=== PATIENT | female | born 1935 | race Caucasian/White ===

== ENCOUNTER 2024-04-05 07:55 | Emergency (ER) | payer MEDICARE, OTHER, SELFPAY ==
[2024-04-05 07:56] VITALS: BP 148/78; PULSE 74; RESP 18; TEMP 36.6; O2SAT 98; BMI 21.8
[2024-04-05 08:20] LABS: MANUAL DIFF FLAG NO
[2024-04-05 08:26] LABS: Appearance Urine Cloudy; Color Urine Yellow; Glucose Urine UA Negative (Negative); Leukocyte Esterase Urine Large (3+) (Negative); Nitrite Urine Negative (Negative); PH 5.5 (5.0-9.0); Specific Gravity - Urine 1.015 (1.005-1.025); UMIC TRIGGER UACC YES; Urine Blood Negative (Negative); Urine Ketones Negative (Negative); Urine Protein 30 (1+) mg/dL (Neg-Trace)
[2024-04-05 08:29] LABS: Bacteria Urine 1+ (None Seen); RBC Urine 0-2 /HPF (0-2); UACC Culture Trigger YES; WBC Urine >50 /HPF (0-5)
[2024-04-05 08:34] LABS: Basophils Percent Auto 0.2 % (0-2); Eosinophils Absolute Auto 0.1 X10*3/uL (0.0-0.4); Eosinophils Percent Auto 1.8 % (0-4); Hematocrit 39.9 % (37.0-47.0); Hemoglobin 13.2 g/dl (12.0-16.0); Imm Gran Abs Auto 0.02 X10*3/uL (0.00-0.03); Imm Gran Pct Auto 0.4 % (0.0-0.4); Lymphocytes Absolute Auto 0.9 X10*3/uL (1.2-4.9); Lymphocytes Percent Auto 17.8 % (20-40); Mean Corpuscular HGB Conc 33.1 g/dl (31.0-35.0); Mean Corpuscular Hemoglobin 29.9 pg (27.0-33.0); Mean Corpuscular Volume 90.3 fL (80.0-98.0); Mean Platelet Volume 10.4 fL (9.4-12.3); Monocytes Absolute Auto 0.5 X10*3/uL (0.1-1.2); Monocytes Percent Auto 9.4 % (2-11); Neutrophils Absolute Auto 3.5 x10*3/uL (2.0-8.3); Neutrophils Percent Auto 70.4 % (45-73); Platelet Count 174 X10*3/uL (160-400); Red Blood Count 4.42 X10*6/uL (4.20-5.50); Red Cell Distribution Width 14.6 % (11.0-16.0); White Blood Count 4.9 X10*3/uL (4.8-10.8)
[2024-04-05 08:36] LABS: Alanine Aminotransferase 14 U/L (0-31); Alkaline Phosphatase 91 U/L (39-117); Anion Gap 13 (12-20); Aspartate Amino Transferase 17 U/L (5-31); Bilirubin Direct 0.3 mg/dL (0.0-0.5); Bilirubin Total 0.9 mg/dL (0.0-1.0); Blood Urea Nitrogen 13 mg/dL (9-16); Calcium 9.5 mg/dL (8.4-10.2); Carbon Dioxide 26 mmol/L (22-29); Chloride 107 mmol/L (96-108); Creatinine Clr Calc Pharmacy 40.1; Estimated Glomerular Filt Rate > 60; Glucose Random 115 mg/dL (60-115); Lipase 25 U/L (8-78); Potassium 3.8 mmol/L (3.3-5.1); Sodium 142 mmol/L (135-145); Total Protein 6.4 g/dL (6.5-8.0)
[2024-04-05 10:00] VITALS: BP 108/71; PULSE 73; RESP 16; O2SAT 97
--- NOTE | 2024-04-05 10:28 | ED_ITS ---
HPI - Female Genitourinary General Chief complaint: Urogenital-Female Stated complaint: UTI Time Seen by Provider: 04/05/24 10:28 Source: patient and RN notes reviewed Mode of arrival: ambulatory Limitations: no limitations History of Present Illness ED Provider: Padma Asencio PA-C [facility] Narrative: This is a 88-year-old female with a history of hyperlipidemia, hiatal hernia, and osteoporosis, who presents emergency department with complaints of dysuria, urinary frequency for the last week. Patient states that she was seen by her primary care physician who put her on Macrobid which she only took 2 doses of as it caused her to have diarrhea. She called her primary care physician who told her that she did not have a urinary tract infection at that time and told her to discontinue this. She denies any fevers, chills, chest pain, shortness of breath, severe abdominal pain, vomiting, nausea. She is otherwise feeling well. No body aches. No other complaints or concerns at this time. MD elicited complaint: UTI Onset (ago): day(s) Vaginal discharge: none Vaginal bleeding: none Urinary symptoms: Dysuria and Frequency Exacerbating factors: urination Relieving factors: none Associated symptoms: denies other symptoms Treatment prior to arrival: none Sexual activity: No Patient : No Related Data Previous Rx's ?Medication ?Instructions ?Recorded cefuroxime axetil 250 mg tablet 250 mg PO BID 7 days #13 tabs 04/05/24 Allergies Allergy/AdvReac Type Severity Reaction Status Date / Time No Known Allergies Allergy Verified 04/05/24 08:01 Review of Systems 2 Review of Systems: Yes all other systems are reviewed and are negative Constitutional: Constitutional: Reports as per [facility] Social History Social History Alcohol intake: former Smoked in Last 30 Days: No Use of substances other than those prescribed or required for medical reasons: No Advance Directives: No Advance Directives Information Provided: No Do you have a plan to hurt others: No Plan Physical Exam 2 Vital Signs: Vital Signs: Last Vital Signs Temp 98.1 F 04/05/24 11:33 Pulse 85 04/05/24 11:33 Resp 18 04/05/24 11:33 BP 108/71 04/05/24 11:33 Pulse Ox 98 04/05/24 11:33 O2 Del Method Room Air 04/05/24 11:33 BMI result Body Mass Index 21.8 Const: General: cooperative, comfortable and no acute distress O rientation/consciousness: patient oriented x3 Limitations: no limitations HEENT: Head: Yes normal to inspection, Yes normocephalic and Yes atraumatic Ears: hearing grossly normal bilaterally General nose exam: Normal external nose present Face and sinus: Yes normal facial exam Mouth: Normal oral and palatal mucosa present, oropharynx normal and moist mucous membranes Throat: Yes posterior oropharynx normal Eyes: General: appearance normal, both eyes and all related structures E yelids: Yes eyelids normal Conjunctivae: conjunctivae normal Sclerae: s clerae normal Pupils: Equal, round and reactive pupils present EOM: EOMs intact bilaterally Neck: Neck: Yes normal visual inspection, Yes full ROM and Yes no lymphadenopathy Lymphatic: no lymphadenopathy noted Chest: Chest palpation & inspection: normal inspection of the chest Resp: Effort & Inspection: normal respiratory effort and able to speak in complete sentences Auscultation: clear to auscultation bilaterally, no crackles, no rales, no rhonchi and no wheezes Cardio: Rate: regular rate Rhythm: regular rhythm Heart sounds: S1 normal heart sound present and S2 normal heart sound present GI: Other: Abdomen is soft, nontender, nondistended Inspection: Yes normal to inspection : Other: No CVA tenderness Skin: General skin exam: no rashes or lesions noted Trauma: no lacerations or abrasions Wounds: no wounds Neuro: General: patient oriented x3 and moves all extremities Cranial nerves: Yes Equal, round and reactive pupils present Extrem: General: Yes normal to inspection Right upper extremity: normal to inspection Left upper extremity: normal to inspection Right lower extremity: normal to inspection Left lower extremity: normal to inspection Medications Administered Discontinued Medications Generic Name Dose Route Start Last Admin Trade Name Freq PRN Reason Stop Dose Admin Cefuroxime Axetil 250 mg 04/05/24 11:24 04/05/24 11:29 Cefuroxime Axetil 250 Mg Tablet PO 04/05/24 11:25 250 mg ONCE ONE Administration Medical Decision Making Medical Decision Making [facility] Narrative: This is a 88-year-old female who presents emergency department with complaints of urinary frequency and dysuria for the last week. She took 2 doses of Macrobid prescribed by her primary care physician 1 week ago however states that this only caused diarrhea, reports that she discontinued this. On arrival, she is alert and oriented x4, vital signs within normal limits, she is afebrile, nontoxic-appearing. Labs revealed no leukocytosis, stable H&H, chemistry within normal limits. No evidence of DARWIN. Urine shows large leuk esterases, wbc's, consistent with urinary tract infection. Will treat with course of cefuroxime. Given strict return precautions. She understands agrees with plan. Patient stable for discharge. Differential Diagnosis Differential Diagnoses: The differential diagnosis associated with the presentation includes UTI, cystitis, pyelonephritis, diverticulitis-unlikely Admission/Observation Consideration of admission/observation: Escalation of care including admission/observation considered Lab Data [facility] Lab Attestation statement: I reviewed the patient's lab results. See [facility] 04/05/24 08:10 04/05/24 08:10 Labs: Lab Results 04/05/24 Range/Units 08:10 WBC 4.9 (4.8-10.8) X10*3/uL RBC 4.42 (4.20-5.50) X10*6/uL Hgb 13.2 (12.0-16.0) g/dl Hct 39.9 (37.0-47.0) % MCV 90.3 (80.0-98.0) fL MCH 29.9 (27.0-33.0) pg MCHC 33.1 (31.0-35.0) g/dl RDW 14.6 (11.0-16.0) % Plt Count 174 (160-400) X10*3/uL MPV 10.4 (9.4-12.3) fL Immature Gran % (Auto) 0.4 (0.0-0.4) % Neut % (Auto) 70.4 (45-73) % Lymph % (Auto) 17.8 L (20-40) % [place] % (Auto) 9.4 (2-11) % Eos % (Auto) 1.8 (0-4) % Baso % (Auto) 0.2 (0-2) % Lymph # (Auto) 0.9 L (1.2-4.9) X10*3/uL [place] # (Auto) 0.5 (0.1-1.2) X10*3/uL Eos # (Auto) 0.1 (0.0-0.4) X10*3/uL Baso # (Auto) 0.0 (0.0-0.2) X10*3/uL Abs Immat Gran (auto) 0.02 (0.00-0.03) X10*3/uL Absolute Neuts (auto) 3.5 (2.0-8.3) x10*3/uL Absolute Nucleated RBC 0.000 (0.0-0.012) X10*3/uL Nucleated RBC % (auto) 0.0 (0.0-0.2) /100WBC Sodium 142 (135-145) mmol/L Potassium 3.8 (3.3-5.1) mmol/L Chloride 107 (96-108) mmol/L Carbon Dioxide 26 (22-29) mmol/L Anion Gap 13 (12-20) BUN 13 (9-16) mg/dL Creatinine 0.78 (0.5-1.4) mg/dL Estim Creat Clear Calc 40.1 Estimated GFR > 60 Random Glucose 115 (60-115) mg/dL Calcium 9.5 (8.4-10.2) mg/dL Total Bilirubin 0.9 (0.0-1.0) mg/dL Direct Bilirubin 0.3 (0.0-0.5) mg/dL AST 17 (5-31) U/L ALT 14 (0-31) U/L Alkaline Phosphatase 91 (39-117) U/L Total Protein 6.4 L (6.5-8.0) g/dL Albumin 4.0 (3.5-5.0) g/dL Lipase 25 (8-78) U/L Urine Color Yellow Urine Appearance Cloudy Urine pH 5.5 (5.0-9.0) Ur Specific [place] 1.015 (1.005-1.025) Urine Protein 30 (1+) H (Neg-Trace) mg/dL Urine Glucose (UA) Negative (Negative) mg/dL Urine Ketones Negative (Negative) mg/dL Urine Blood Negative (Negative) Urine Nitrite Negative (Negative) Ur Leukocyte Esterase Large (3+) H (Negative) Urine RBC 0-2 (0-2) /HPF Urine WBC >50 H (0-5) /HPF Ur Squamous Epith Cells 6-10 (0-2) /HPF Urine Bacteria 1+ (None Seen) Hyaline Casts 3-5 (0-2) /LPF Discharge Plan Discharge Clinical Impression: Urinary tract infection Patient Disposition: Still a Patient Instructions: Urinary Tract Infection in Women (ED) Additional Instructions: You were seen in the emergency department due to urinary frequency, and abdominal discomfort. Your blood work was reassuring. Your urine appears to be infected, we are treating you with an antibiotic. Please take twice daily. Finish the entire course even if your symptoms improve. We are sending your urine out for further testing, we will call you if we need to change out your antibiotic. If any new or worsening symptoms occur including but not limited to chest pain, shortness for breath, worsening abdominal pain, inability to urinate, please return for re-evaluation. Prescriptions: New cefuroxime axetil 250 mg tablet 250 mg PO BID 7 Days Qty: 13 0RF Rx Instructions: first dose taken on 04/05/2024 at 12:00PM Interventions: ED Discharge Assessment Last Done: 04/05/24 11:33 Discharge Date/Time: 04/05/24 11:36 Print Language: [place]
[2024-04-05] MEDS: cefuroxime axetiL 250 MG TABLET PO (11:29)
[2024-04-05 11:33] VITALS: BP 108/71; PULSE 85; RESP 18; TEMP 36.7; O2SAT 98
== END 2024-04-05 11:36 | disposition still patient (30) ==
PROVIDERS: Emergency Provider Emergency Medicine Emergency Medical Services; PCP Nurse Practitioner Family
DX: N39.0 Urinary tract infection, site not specified (principal); R30.0 Dysuria; R35.0 Frequency of micturition; Z79.899 Other long term (current) drug therapy
CPT/HCPCS: 36415; 80048; 80076; 81001; 83690; 85025; 87086; 99284